=== PATIENT | male | born 1950 | race American Indian/Alaskan Native ===

== ENCOUNTER 2018-06-10 18:41 | Emergency (ER) | payer MEDICARE ==
[2018-06-10 19:40] VITALS: BP 132/90
--- NOTE | 2018-06-10 23:16 | XRay Report ---
PROCEDURE: XR CHEST ROUTINE 2V TECHNIQUE: 2 views of the chest HISTORY: cough COMPARISONS: None FINDINGS: Normal heart size. Elevated left hemidiaphragm. Lungs are clear and well expanded. No focal infiltrate or consolidation. No effusion. Imaged axial skeleton is unremarkable. IMPRESSION: Elevated left hemidiaphragm, chronicity is uncertain. No focal infiltrate.. This document is electronically signed by Yessy Thompson MD., June 10 2018 11:15:09 PM ET
== END 2018-06-10 21:28 | disposition left against medical advice (07) ==
LOC: ED 18:41
DX: R05 Cough (principal); R06.00 Dyspnea, unspecified; Z53.21 Procedure and treatment not carried out due to patient leaving prior to being seen by health care provider
CPT/HCPCS: 71046